=== PATIENT | male | born 1945 | race African-American/Black ===

== ENCOUNTER 2019-07-30 16:08 | Emergency (ER) | payer OTHER ==
[~2019-07-30] VITALS: Ht 177.8 cm; Wt 89.0 kg
[2019-07-30] MEDS ORDERED: SODIUM CHLORIDE 0.9% 1000ML BAG (SEPSIS BOLUS) IV ONE (16:45)
[2019-07-30 17:19] LABS: CLARITY URINE CLEAR (CLEAR); COLOR URINE YELLOW (YELLOW); KETONES URINE NEGATIVE (NEGATIVE); LEUKOCYTE ESTERASE URINE NEGATIVE (NEGATIVE); NITRITE URINE NEGATIVE (NEGATIVE); OCCULT BLOOD URINE NEGATIVE (NEGATIVE); PROTEIN URINE NEGATIVE (NEGATIVE); SPECIFIC GRAVITY URINE 1.009 (1.005-1.030); UROBILINOGEN URINE 0.2 E.U./dL (0.2-1.0)
[2019-07-30 17:20] LABS: CHLORIDE 107 mEq/L (98-107)
[2019-07-30 17:21] LABS: BASOPHILS % 0.5 % (0.0-2.0); EOSINOPHILS % 1.4 % (0.0-5.0); HEMATOCRIT. 42.8 % (42.0-52.0); HEMOGLOBIN. 14.7 g/dL (14.0-18.0); LYMPHOCYTES % 37.6 % (20.0-50.0); MEAN CORPUSCULAR HEMOGLOBIN 32.7 pg (28.0-32.0); MEAN CORPUSCULAR VOLUME 95.5 fL (80.0-94.0); MEAN PLATELET VOLUME 9.6 fl (7.4-10.4); MONOCYTES % 10.7 % (2.0-8.0); NEUTROPHILS % 49.8 % (40.0-76.0); PLATELET 184 x1000/uL (130-400); RED BLOOD CELL COUNT 4.49 mill/uL (4.7-6.1); RED CELL DISTRIBUTION WIDTH 14.9 % (11.6-14.6)
[2019-07-30 17:27] LABS: BETA HYDROXYBUTYRATE 0.1 mMol/L (0.0-0.3)
[2019-07-30 17:32] LABS: *AMPHETAMINES SCREEN URINE NEGATIVE (NEGATIVE); *BARBITURATES SCREEN URINE NEGATIVE (NEGATIVE); *BENZODIAZEPINES SCREEN URINE PRESUMTIVE POSITIVE (NEGATIVE); *COCAINE SCREEN URINE NEGATIVE (NEGATIVE)
[2019-07-30 17:33] LABS: CANNABINOID URINE SCREEN NEGATIVE (NEGATIVE); METHADONE URINE SCREEN NEGATIVE (NEGATIVE); PHENCYCLIDINE URINE SCREEN NEGATIVE (NEGATIVE)
[2019-07-30 23:00] VITALS: BP 164/83
[2019-08-01 21:27] LABS: OPIATES URINE SCREEN NEGATIVE (NEGATIVE)
== END 2019-07-30 23:42 | disposition short-term general hospital (02) ==
LOC: ER 16:08 → CANBEDREQ 07-31 07:32
DX: E11.22 Type 2 diabetes mellitus with diabetic chronic kidney disease (principal); I13.0 Hypertensive heart and chronic kidney disease with heart failure and stage 1 through stage 4 chronic kidney disease, or unspecified chronic kidney disease; N18.9 Chronic kidney disease, unspecified; I50.43 Acute on chronic combined systolic (congestive) and diastolic (congestive) heart failure; R33.9 Retention of urine, unspecified; N40.0 Benign prostatic hyperplasia without lower urinary tract symptoms; E11.21 Type 2 diabetes mellitus with diabetic nephropathy; E87.70 Fluid overload, unspecified; R39.2 Extrarenal uremia; N40.1 Benign prostatic hyperplasia with lower urinary tract symptoms; N13.8 Other obstructive and reflux uropathy; F13.20 Sedative, hypnotic or anxiolytic dependence, uncomplicated; R10.9 Unspecified abdominal pain; F41.9 Anxiety disorder, unspecified; E86.0 Dehydration; J44.9 Chronic obstructive pulmonary disease, unspecified; R01.1 Cardiac murmur, unspecified; N17.0 Acute kidney failure with tubular necrosis; N28.1 Cyst of kidney, acquired; N39.43 Post-void dribbling; N13.4 Hydroureter; I25.10 Atherosclerotic heart disease of native coronary artery without angina pectoris; E78.5 Hyperlipidemia, unspecified; R26.9 Unspecified abnormalities of gait and mobility; R53.83 Other fatigue; R53.81 Other malaise; K21.9 Gastro-esophageal reflux disease without esophagitis; Z95.0 Presence of cardiac pacemaker
CPT/HCPCS: 36415; 71045; 74176; 80053; 80305; 81003; 82010; 83605; 83880; 84145; 84484; 85025; 87040; 87086; 93005; 99285; J7030

== ENCOUNTER 2019-08-08 05:52 | Inpatient (IN) | payer OTHER ==
[~2019-08-08] VITALS: Ht 180.3 cm; Wt 86.3 kg
[2019-08-08] MEDS ORDERED: SODIUM CHLORIDE 0.9% 1,000 ML IV ONE (06:30)
[2019-08-08 07:18] LABS: BASOPHILS % 0.6 % (0.0-2.0); EOSINOPHILS % 0.6 % (0.0-5.0); HEMOGLOBIN. 14.4 g/dL (14.0-18.0); LYMPHOCYTES % 17.2 % (20.0-50.0); MEAN CORPUSCULAR HEMOGLOBIN 32.5 pg (28.0-32.0); MEAN CORPUSCULAR VOLUME 94.7 fL (80.0-94.0); MEAN PLATELET VOLUME 10.1 fl (7.4-10.4); MONOCYTES % 6.4 % (2.0-8.0); NEUTROPHILS % 75.2 % (40.0-76.0); PLATELET 215 x1000/uL (130-400); RED BLOOD CELL COUNT 4.44 mill/uL (4.7-6.1); RED CELL DISTRIBUTION WIDTH 14.7 % (11.6-14.6)
[2019-08-08 07:25] LABS: CHLORIDE 104 mEq/L (98-107); ETHANOL BLOOD < 10 mg/dL
[2019-08-08] MEDS ORDERED: AMIODARONE HCL 150 MG in DEXT 5% WATER 100 ML IV ONE (11:00)
[2019-08-08] MEDS ORDERED: AMIODARONE HCL 900 MG in DEXT 5% WATER 500 ML IV ONE (11:00)
[2019-08-08] MEDS ORDERED: AMIODARONE HCL 900 MG in DEXT 5% WATER 500 ML IV SCH (11:15)
[2019-08-08] MEDS ORDERED: POTASSIUM CHLORIDE 20MEQ TABLET SR PO ONE (11:30)
[2019-08-08] MEDS ORDERED: ONDANSETRON HCL 4MG/2ML INJ IV PRN (11:30)
[2019-08-08] MEDS ORDERED: POTASSIUM CHLORIDE 20MEQ TABLET SR PO SCH (13:30)
[2019-08-08] MEDS ORDERED: KCL 20MEQ/100ML PREMIX 100 ML IV SCH (13:30)
[2019-08-08] MEDS: SODIUM CHLORIDE 0.9% 1,000 ML IV SCH (15:00)
[2019-08-08] MEDS ORDERED: MVI, ADULT NO.1 10 ML, FOLIC ACID 1 MG, THIAMINE HCL 100 MG in SODIUM CHLORIDE 0.9% 1,0... IV SCH ×4 (16:00)
[2019-08-08 18:00] VITALS: BP 169/112
[2019-08-08 20:00] VITALS: BP 161/99
[2019-08-08 21:21] LABS: CLARITY URINE CLEAR (CLEAR); COLOR URINE YELLOW (YELLOW); KETONES URINE TRACE (NEGATIVE); LEUKOCYTE ESTERASE URINE TRACE (NEGATIVE); NITRITE URINE NEGATIVE (NEGATIVE); OCCULT BLOOD URINE NEGATIVE (NEGATIVE); PH URINE 5.5 (4.5-8.0); PROTEIN URINE 2+ (NEGATIVE); SPECIFIC GRAVITY URINE 1.012 (1.005-1.030); UROBILINOGEN URINE 0.2 E.U./dL (0.2-1.0)
[2019-08-08 21:41] LABS: *AMPHETAMINES SCREEN URINE NEGATIVE (NEGATIVE); *BARBITURATES SCREEN URINE NEGATIVE (NEGATIVE); *BENZODIAZEPINES SCREEN URINE PRESUMTIVE POSITIVE (NEGATIVE)
[2019-08-08 21:42] LABS: *COCAINE SCREEN URINE PRESUMTIVE POSITIVE (NEGATIVE); CANNABINOID URINE SCREEN NEGATIVE (NEGATIVE); METHADONE URINE SCREEN NEGATIVE (NEGATIVE); OPIATES URINE SCREEN NEGATIVE (NEGATIVE); PHENCYCLIDINE URINE SCREEN NEGATIVE (NEGATIVE)
[2019-08-08 22:00] VITALS: BP 174/88
[2019-08-08] MEDS: HEPARIN 5000 UNITS/ML VIAL SUBCUT SCH (22:34)
[2019-08-08] MEDS: DILTIAZEM HCL 30MG TABLET PO SCH (22:35)
[2019-08-08 23:00] VITALS: BP 146/96
[2019-08-08] MEDS ORDERED: MAGNESIUM 2 G PREMIX 50 ML IV SCH (23:00)
[2019-08-09] VITALS (14 sets, daily range): BP systolic 134–163; BP diastolic 63–104
[2019-08-09] MEDS: SODIUM CHLORIDE 0.9% 1,000 ML IV SCH ×2 (05:37→11:06)
[2019-08-09] MEDS: CLONIDINE 0.1MG TABLET PO PRN (05:42)
[2019-08-09] MEDS: DILTIAZEM HCL 30MG TABLET PO SCH ×3 (05:42→21:35)
[2019-08-09 06:22] LABS: CHLORIDE 108 mEq/L (98-107)
[2019-08-09 06:29] LABS: BASOPHILS % 0.5 % (0.0-2.0); EOSINOPHILS % 1.8 % (0.0-5.0); HEMATOCRIT. 38.9 % (42.0-52.0); HEMOGLOBIN. 13.8 g/dL (14.0-18.0); LYMPHOCYTES % 29.6 % (20.0-50.0); MEAN CORPUSCULAR HEMOGLOBIN 33.1 pg (28.0-32.0); MEAN CORPUSCULAR VOLUME 93.6 fL (80.0-94.0); MONOCYTES % 8.1 % (2.0-8.0); PLATELET 209 x1000/uL (130-400); RED BLOOD CELL COUNT 4.16 mill/uL (4.7-6.1); RED CELL DISTRIBUTION WIDTH 14.7 % (11.6-14.6)
[2019-08-09 06:30] LABS: LDL CHOLESTEROL 76 mg/dL (5-100)
[2019-08-09 06:32] LABS: HDL CHOLESTEROL 44 mg/dL (40-59); T4 FREE 1.16 ng/dL (0.76-1.46)
[2019-08-09] MEDS ORDERED: POTASSIUM CHLORIDE 20MEQ TABLET SR PO NR (08:45)
[2019-08-09] MEDS: HEPARIN 5000 UNITS/ML VIAL SUBCUT SCH ×2 (09:58→21:34)
[2019-08-09] MEDS ORDERED: POTASSIUM CHLORIDE INJ 40 MEQ in DEXT 5% WATER 250 ML IV SCH (11:00)
[2019-08-09] MEDS ORDERED: DILT30TA38 PO (12:09)
[2019-08-09] MEDS: POTASSIUM CHLORIDE 20MEQ TABLET SR PO SCH (16:36)
[2019-08-09 18:06] LABS: CHLORIDE 110 mEq/L (98-107)
[2019-08-09] MEDS: ACETAMINOPHEN 325MG TABLET PO PRN (22:51)
[2019-08-10] VITALS (12 sets, daily range): BP systolic 146–187; BP diastolic 71–96
[2019-08-10] MEDS: SODIUM CHLORIDE 0.9% 1,000 ML IV SCH (05:05)
[2019-08-10] MEDS: DILTIAZEM HCL 30MG TABLET PO SCH (05:52)
[2019-08-10 05:54] LABS: BASOPHILS % 0.5 % (0.0-2.0); EOSINOPHILS % 4.8 % (0.0-5.0); HEMATOCRIT. 36.1 % (42.0-52.0); HEMOGLOBIN. 12.4 g/dL (14.0-18.0); LYMPHOCYTES % 44.8 % (20.0-50.0); MEAN CORPUSCULAR HEMOGLOBIN 32.5 pg (28.0-32.0); MEAN CORPUSCULAR VOLUME 94.8 fL (80.0-94.0); MEAN PLATELET VOLUME 9.5 fl (7.4-10.4); NEUTROPHILS % 41.9 % (40.0-76.0); PLATELET 186 x1000/uL (130-400); RED CELL DISTRIBUTION WIDTH 14.8 % (11.6-14.6)
[2019-08-10 06:04] LABS: CHLORIDE 112 mEq/L (98-107)
[2019-08-10] MEDS: HEPARIN 5000 UNITS/ML VIAL SUBCUT SCH ×2 (08:22→21:00)
[2019-08-10] MEDS: POTASSIUM CHLORIDE 20MEQ TABLET SR PO SCH ×2 (08:22→16:38)
[2019-08-10] MEDS: HYDRALAZINE 20MG/ML VIAL IV PRN ×2 (08:37→16:38)
[2019-08-10] MEDS: TAMSULOSIN HCL 0.4MG SR CAPSULE PO SCH (11:41)
[2019-08-10] MEDS: DILTIAZEM HCL 60MG TABLET PO SCH ×2 (14:16→21:00)
[2019-08-10] MEDS: CLONIDINE 0.1MG TABLET PO PRN (21:01)
[2019-08-10] MEDS: ACETAMINOPHEN 325MG TABLET PO PRN (21:02)
[2019-08-11] VITALS (8 sets, daily range): BP systolic 140–161; BP diastolic 68–86
[2019-08-11] MEDS: ACETAMINOPHEN 325MG TABLET PO PRN (03:32)
[2019-08-11] MEDS: CLONIDINE 0.1MG TABLET PO PRN (03:33)
[2019-08-11] MEDS: DILTIAZEM HCL 60MG TABLET PO SCH (06:07)
[2019-08-11 06:53] LABS: BASOPHILS % 0.3 % (0.0-2.0); EOSINOPHILS % 4.1 % (0.0-5.0); HEMATOCRIT. 37.5 % (42.0-52.0); HEMOGLOBIN. 12.8 g/dL (14.0-18.0); LYMPHOCYTES % 41.1 % (20.0-50.0); MEAN CORPUSCULAR HEMOGLOBIN 32.8 pg (28.0-32.0); MEAN CORPUSCULAR VOLUME 95.9 fL (80.0-94.0); MEAN PLATELET VOLUME 9.9 fl (7.4-10.4); MONOCYTES % 8.3 % (2.0-8.0); NEUTROPHILS % 46.2 % (40.0-76.0); PLATELET 178 x1000/uL (130-400); RED BLOOD CELL COUNT 3.91 mill/uL (4.7-6.1); RED CELL DISTRIBUTION WIDTH 14.7 % (11.6-14.6)
[2019-08-11 07:13] LABS: CHLORIDE 110 mEq/L (98-107)
[2019-08-11] MEDS: POTASSIUM CHLORIDE 20MEQ TABLET SR PO SCH (08:30)
[2019-08-11] MEDS: TAMSULOSIN HCL 0.4MG SR CAPSULE PO SCH (08:30)
[2019-08-11] MEDS: HEPARIN 5000 UNITS/ML VIAL SUBCUT SCH (08:31)
[2019-08-11] MEDS ORDERED: MAGN400T26 MT (13:27)
[2019-08-11] MEDS ORDERED: TAMS-11 PO (13:27)
[2019-08-11] MEDS ORDERED: FINA1TAB18 MT (13:27)
[2019-08-11] MEDS ORDERED: POTA20TA82 PO (13:27)
[2019-08-11] MEDS ORDERED: DILT60TA35 PO (13:27)
[2019-08-11] MEDS ORDERED: POTASSIUM CHLORIDE 20MEQ/PACKET PO SCH (13:30)
[2019-08-11] MEDS ORDERED: MAGNESIUM 2 G PREMIX 50 ML IV SCH (15:00)
[2019-08-11] MEDS ORDERED: ATORVASTATIN CALCIUM 40MG TABLET PO SCH (21:00)
[2019-08-12] MEDS ORDERED: ASPIRIN 81MG EC TABLET PO SCH (09:00)
== END 2019-08-11 05:05 | DRG 74 ==
LOC: ER 06:13 → 5EST 11:20 → ENRESERV 12:35 → 5EST 14:40 → 3WST 17:05
PROVIDERS: ADMIT Internal Medicine; ATTEND Internal Medicine
PROC: 4B02XSZ Measurement of Cardiac Pacemaker, External Approach (ICD-10-PCS; principal; 2019-08-08)
DX: G90.8 Other disorders of autonomic nervous system (principal); I47.2 Ventricular tachycardia; I16.1 Hypertensive emergency; I42.9 Cardiomyopathy, unspecified; I50.22 Chronic systolic (congestive) heart failure; I25.10 Atherosclerotic heart disease of native coronary artery without angina pectoris; E87.6 Hypokalemia; I11.0 Hypertensive heart disease with heart failure; E11.9 Type 2 diabetes mellitus without complications; E83.42 Hypomagnesemia; I65.22 Occlusion and stenosis of left carotid artery; R33.9 Retention of urine, unspecified; K59.00 Constipation, unspecified; J44.9 Chronic obstructive pulmonary disease, unspecified; F14.10 Cocaine abuse, uncomplicated; F10.10 Alcohol abuse, uncomplicated; I25.2 Old myocardial infarction; Z86.73 Personal history of transient ischemic attack (TIA), and cerebral infarction without residual deficits; Z91.19 Patient's noncompliance with other medical treatment and regimen; Z91.14 Patient's other noncompliance with medication regimen; Z79.899 Other long term (current) drug therapy
CPT/HCPCS: 36415; 71045; 80048; 80053; 80061; 80305; 80320; 81003; 83036; 83735; 83880; 84439; 84443; 84484; 85025; 93005; 93306; 93880; 99291; J0282; J0360; J1644; J3411; J3475; J3480; J3490; J7030; J7060; G0480

== ENCOUNTER 2020-07-15 01:09 | Emergency (ER) | payer OTHER ==
[~2020-07-15] VITALS: Ht 172.7 cm; Wt 90.0 kg
[~2020-07-15 01:09] MED LIST: DILT60TA35 PO; FINA1TAB18 MT; MAGN400T26 MT; POTA20TA82 PO; TAMS-11 PO
[2020-07-15] MEDS ORDERED: ASPIRIN 81MG TABLET PO ONE (01:45)
[2020-07-15] MEDS: NITROGLYCERIN 0.4MG TABLET SL SL PRN ×2 (01:58→02:39)
[2020-07-15] MEDS ORDERED: CLONIDINE 0.2MG TABLET PO ONE (02:15)
[2020-07-15 02:26] LABS: BASOPHILS % 0.5 % (0.0-2.0); EOSINOPHILS % 0.8 % (0.0-5.0); HEMATOCRIT. 50.2 % (42.0-52.0); HEMOGLOBIN. 16.7 g/dL (14.0-18.0); LYMPHOCYTES % 31.9 % (20.0-50.0); MEAN CORPUSCULAR HEMOGLOBIN 31.9 pg (28.0-32.0); MEAN CORPUSCULAR VOLUME 95.9 fL (80.0-94.0); MEAN PLATELET VOLUME 10.1 fl (7.4-10.4); MONOCYTES % 8.6 % (2.0-8.0); NEUTROPHILS % 58.2 % (40.0-76.0); PLATELET 184 x1000/uL (130-400); RED BLOOD CELL COUNT 5.24 mill/uL (4.7-6.1); RED CELL DISTRIBUTION WIDTH 15.4 % (11.6-14.6)
[2020-07-15 02:30] LABS: CHLORIDE 106 mEq/L (98-107)
[2020-07-15 02:33] LABS: D-DIMER 3.3 mg/L FEU (<0.50); PARTIAL THROMBOPLASTIN TIME 25.3 sec (23.4-31.0); PROTHROMBIN TIME 10.9 sec (9.6-11.0)
[2020-07-15 02:34] LABS: ETHANOL BLOOD < 10 mg/dL
[2020-07-15] MEDS ORDERED: IOHEXOL-350 100 ML BOTTLE IV NR (05:30)
[2020-07-15 08:00] VITALS: BP 132/80
== END 2020-07-15 08:00 | disposition short-term general hospital (02) ==
LOC: ER 01:09
DX: R07.89 Other chest pain (principal); R42 Dizziness and giddiness; R06.02 Shortness of breath; I10 Essential (primary) hypertension; F41.9 Anxiety disorder, unspecified; I11.0 Hypertensive heart disease with heart failure; I50.9 Heart failure, unspecified; J44.9 Chronic obstructive pulmonary disease, unspecified; E11.9 Type 2 diabetes mellitus without complications; K21.9 Gastro-esophageal reflux disease without esophagitis; I25.2 Old myocardial infarction; Z87.440 Personal history of urinary (tract) infections; Z86.73 Personal history of transient ischemic attack (TIA), and cerebral infarction without residual deficits; Z95.0 Presence of cardiac pacemaker; F17.290 Nicotine dependence, other tobacco product, uncomplicated; F14.10 Cocaine abuse, uncomplicated; Z79.899 Other long term (current) drug therapy
CPT/HCPCS: 36415; 71045; 71275; 80053; 80320; 83880; 84484; 85025; 85379; 85610; 85730; 93005; 99285; Q9967; G0480

== ENCOUNTER 2020-10-28 09:43 | Emergency (ER) | payer OTHER ==
[~2020-10-28] VITALS: Ht 177.8 cm; Wt 84.0 kg
[2020-10-28 11:05] LABS: BASOPHILS % 0.6 % (0.0-2.0); EOSINOPHILS % 1.1 % (0.0-5.0); HEMATOCRIT. 44.5 % (42.0-52.0); HEMOGLOBIN. 15.6 g/dL (14.0-18.0); LYMPHOCYTES % 24.1 % (20.0-50.0); MEAN CORPUSCULAR HEMOGLOBIN 33.4 pg (28.0-32.0); MEAN CORPUSCULAR VOLUME 95.3 fL (80.0-94.0); MEAN PLATELET VOLUME 9.2 fl (7.4-10.4); MONOCYTES % 10.3 % (2.0-8.0); NEUTROPHILS % 63.9 % (40.0-76.0); PLATELET 185 x1000/uL (130-400); RED BLOOD CELL COUNT 4.67 mill/uL (4.7-6.1); RED CELL DISTRIBUTION WIDTH 15.4 % (11.6-14.6)
[2020-10-28 11:12] LABS: CHLORIDE 106 mEq/L (98-107)
[2020-10-28 18:35] VITALS: BP 135/84
== END 2020-10-28 20:47 | disposition short-term general hospital (02) ==
LOC: ER 09:43
DX: R07.89 Other chest pain (principal); Z86.73 Personal history of transient ischemic attack (TIA), and cerebral infarction without residual deficits; Z95.0 Presence of cardiac pacemaker; Z79.899 Other long term (current) drug therapy
CPT/HCPCS: 36415; 71045; 80048; 84484; 85025; 93005; 99285